=== PATIENT | male | born 1960 | race Two or more races ===

== ENCOUNTER → 2016-08-09 | Outpatient (CLI) | payer BC ==
--- NOTE | 2016-08-09 23:07 | MR ---
EXAMINATION TYPE: MR shoulder RT wo con DATE OF EXAM: 08/09/2016 8:54 PM COMPARISON: NONE HISTORY: Rt shoulder pain/limited ROM for several years TECHNIQUE: Multiplanar, multisequence imaging of the shoulder is performed without contrast. FINDINGS: There is a large defect in the supraspinatus tendon with retraction from the greater tuberosity of th e humerus. There is fluid signal at the greater tuberosity. I see no fracture. There is some narrowin g of the glenohumeral joint space with mild spurring. The biceps tendon is intact. Subscapularis tend on is intact. The glenoid mark appear intact. There is mild spurring at the AC joint with subacromia l impingement on the supraspinatus tendon and muscle. IMPRESSION: Large rotator cuff tear involving supraspinatus tendon at the greater tuberosity of the humerus. Hypertrophic spurring at the AC joint with moderate subacromial impingement on the supraspinatus tend on and muscle. Mild osteoarthritic changes. Minimal shoulder joint effusion.
== END | disposition home or self-care (01) ==
LOC: RADMRIMAIN 20:09
PROVIDERS: ATTEND Orthopaedic Surgery
DX: M75.101 Unspecified rotator cuff tear or rupture of right shoulder, not specified as traumatic (principal); M19.011 Primary osteoarthritis, right shoulder; M75.91 Shoulder lesion, unspecified, right shoulder

== ENCOUNTER → 2017-02-07 | Outpatient (CLI) | payer BC ==
--- NOTE | 2017-02-07 13:26 | CT ---
EXAMINATION TYPE: CT sinus wo con DATE OF EXAM: 02/07/2017 COMPARISON: NONE HISTORY: sinusitis, sleep apnea, chronic snoring CT DLP: 611 mGycm. Automated Exposure Control for Dose Reduction was Utilized. TECHNIQUE: CT scan of the sinuses is performed without contrast, axial images are obtained, coronal r eformatted images are also reviewed. FINDINGS: There is a nasal septal deviation. Small polyps or mucous retention cyst seen within the ma xillary antra with mild mucosal thickening. Mild to moderate mucosal thickening involving ethmoid air cells. Small osteoma within the right frontal sinus inferiorly. Frontal sinus has a minimal mucosal thickening. Syed bullosa are noted bilaterally. There is narrowing of the left ostiomeatal complex. Right ostom y oh complex appears patent. No air-fluid levels. Mild mucosal thickening or mucous retention cyst within the sphenoid sinus. Nasopharynx is symmetric. Oropharynx symmetric. Visualized parotid glands have a normal appearance. Very mild changes of chronic mastoiditis bilaterally. The globes are intact bilaterally. IMPRESSION: 1. Changes of mild to moderate chronic sinusitis with most marked findings involving the ethmoid air cells. 2. Bilateral syed bullosa 3. Localized mucosal thickening results in narrowing of the ostiomeatal complex bilaterally. No air-f luid levels to suggest acute sinusitis. 4. Mild chronic mastoiditis.
== END | disposition home or self-care (01) ==
LOC: RADCTMAIN 13:02
PROVIDERS: ATTEND Otolaryngology
DX: J32.2 Chronic ethmoidal sinusitis (principal); J34.89 Other specified disorders of nose and nasal sinuses; H70.10 Chronic mastoiditis, unspecified ear
CPT/HCPCS: 70486

== ENCOUNTER → 2017-04-24 | Outpatient (CLI) | payer BC ==
--- NOTE | 2017-04-24 12:34 | CONS ---
CONSULTATION DATE OF SERVICE: 04/24/2017 A 57-year-old gentleman who has been [facility] for obstructive sleep apnea-hypopnea syndrome. HISTORY OF PRESENT ILLNESS/SLEEP-WAKE EVALUATION: Patient's usual sleep schedule from 10 pm to 7 am basically 7 days a week. No problem with falling asleep. No TV in bedroom. He has loud snoring and witnessed episodes of stopped breathing during the sleep according to his . He wakes up from sleep up to 10 times and once has nocturia. He feels sleepiness during the day. [place] Sleepiness Scale significantly increased to 15. He has problems with memory, concentration. Patient takes two naps a day at 12 noon and 5 pm. No history of hypnagogic hallucinations. No dreams during naps. No history of sleep paralysis or cataplexy. MEDICATIONS: None. PAST SURGICAL HISTORY: Surgery on the nose and surgery for ruptured naval. PAST SOCIAL HISTORY: Positive for smoking about 1 pack a day for 20 years, quit about 3-1/2 years ago. Alcohol consumption, occasional. REVIEW OF SYSTEMS: Multiple awakenings from sleep, sleepiness during the day. FAMILY HISTORY: Positive for tuberculosis. PHYSICAL EXAM: A 57-year-old gentleman without distress. BP 134/84, HR 84, RR 16, height 5, 10-1/2 inches, weight 220, BMI 31.1. Neck 16-1/2 inches in circumference. Temperature 97.7, oxygen saturation at room air 95%. OROPHARYNX: Extremely low position of soft palate. Restriction of nasal breathing significantly on both sides. One site does not breath at all. Retrognathia at about 10 mm. ABDOMEN: Slightly obese. Neck Supple, no JVD. Thyroid is not palpable. LUNGS Clear to percussion and to auscultation. Good air exchange. No wheezing or rhonchi. HEART S1, S2 regular. No murmurs, gallops, or rubs. EXTREMITIES No clubbing or cyanosis. FIELD ARTILLERY CANNONEER Awake, alert, and oriented X3. Cranial nerves 2 to 7 intact. There is no fasciculation or atrophy. noted. No focal deficits observed. IMPRESSION: 1. Loud snoring, witnessed episodes of stopped breathing during the sleep, extremely low position of soft palate. Restriction of nasal breathing. Retrognathia at10 mm, sleepiness, obstructive sleep apnea-hypopnea syndrome. 2. Mild obesity, body mass index 31.1. 3. Significant sleepiness. Patient takes naps 2 times a day. [place] Sleepiness Scale increased to 15. Differential diagnosis should include hypersomnia. No history of cataplexy or hypnagogic hallucinations. 4. Significant restriction of nasal breathing. 5. Status post nasal surgery many years ago. 6. Status post surgery for umbilical hernia. 7. History of smoking for 20-pack/years. Quit 3 years ago. PLAN: 1. Home sleep apnea test for evaluation of patient's breathing during the sleep. 2. CPAP titration if sleep study will be positive for abnormalities of respiration. 3. Sleep hygiene with regular time in bed for at least 8 hours. 4. No driving if feeling any sleepiness. Thank you very much for allowing me to participate in the management of your patient. Sincerely, Tad Ugarte MD, PhD, FAASM Diplomat of [place] [employer] [place] [employer] Moisture Meter Reader of [facility] Garita MMODL / IJN: [id number] /
== END ==
LOC: SLEEP 10:31
PROVIDERS: ATTEND Internal Medicine
DX: G47.33 Obstructive sleep apnea (adult) (pediatric) (principal); E66.9 Obesity, unspecified; Z68.31 Body mass index [BMI] 31.0-31.9, adult; Z98.890 Other specified postprocedural states; Z87.891 Personal history of nicotine dependence
CPT/HCPCS: 99211

== ENCOUNTER 2017-08-14 11:57 | Inpatient (IN) | payer BC ==
[2017-07-15 12:40] VITALS: BMI 30.9
[~2017-08-14 11:57] MED LIST: DEXAMETHASONE SOD PHOSPHATE 4 MG/ML 1 ML VIAL IV ONE; FAMOTIDINE 20 MG/2 ML VIAL IV ONE; LACTATED RINGERS 1,000 ML IV SCH; LIDOCAINE 1% 20 ML VIAL (10MG/ML) FOR IV START INTRADERMA PRN; MIDAZOLAM 2 MG/2 ML VIAL IV PRN; ONDANSETRON 4 MG/2 ML VIAL IVP ONE; ceFAZolin 1,000 MG in DEXTROSE/WATER 1 50ML.BAG IV ONE
[2017-08-14] MEDS: OXYMETAZOLINE 0.05% NASL SPRAY 1 SPRAY BOTTLE NASAL ONE ×5 (12:15→13:13)
[2017-08-14] MEDS: DEXAMETHASONE SOD PHOSPHATE 10 MG/ML 1 ML VIAL IV ONE ×2 (12:48→18:57)
[2017-08-14] MEDS ORDERED: SUCCINYLCHOLINE CHLORIDE VIAL 200 MG/10 ML VIAL IV ONE (14:10)
[2017-08-14] MEDS ORDERED: LIDOCAINE 1% INJ 10MG/ML (20 ML MDV) ONE (14:10)
[2017-08-14] MEDS ORDERED: ePHEDrine SULFATE/0.9% NACL/PF 50 MG/5 ML SYRINGE IV ONE (14:10)
[2017-08-14] MEDS ORDERED: PROPOFOL 10 MG/ML 20 ML VIAL IV ONE (14:10)
[2017-08-14] MEDS ORDERED: fentaNYL (PF) 50 MCG/ML 2 ML AMP ONE (14:10)
[2017-08-14] MEDS ORDERED: ATROPINE SULFATE 0.1 MG/ML 10ML SYRINGE ONE (14:10)
[2017-08-14] MEDS ORDERED: MIDAZOLAM 2 MG/2 ML VIAL ONE (14:10)
[2017-08-14] MEDS ORDERED: PHENYLEPHRINE-0.9% NACL SYG 1 MG/10 ML SYRINGE ONE (14:10)
[2017-08-14] MEDS ORDERED: SODIUM CHLORIDE 0.9% 50 ML with ceFAZolin 2,000 MG IV ONE ×2 (14:25)
[2017-08-14] MEDS ORDERED: LACTATED RINGERS 1,000 ML IV ONE (14:54)
[2017-08-14] MEDS ORDERED: BUPIVACAIN-EPI 0.5%-1:200,000 30 ML VIAL SQ ONE ×2 (14:56)
[2017-08-14] MEDS ORDERED: BACITRACIN 500 UNIT/GM OINT 28.4 GM TUBE TOPICAL ONE (14:56)
[2017-08-14] MEDS ORDERED: EPINEPHrine 1 MG/ML (MDV) 30 ML VIAL TOPICAL ONE (14:57)
[2017-08-14] MEDS ORDERED: FLUORESCEIN STRIPS 1 MG STRIP MISCELLANE ONE (14:57)
[2017-08-14] MEDS: HYDROmorphone 0.5 MG/0.5 ML SYRINGE IVP PRN ×4 (17:08→17:45)
--- NOTE | 2017-08-14 17:33 | XR ---
EXAMINATION TYPE: XR chest 1V portable DATE OF EXAM: 08/14/2017 COMPARISON: NONE HISTORY: Tube placement TECHNIQUE: Single frontal view of the chest is obtained. FINDINGS: There is mild pulmonary interstitial edema. Endotracheal tube has tip in fairly good posit ion 3.5 cm from the ayaz. Trachea is midline. I see no definite pleural effusion. IMPRESSION: Mild pulmonary interstitial edema.
--- NOTE | 2017-08-14 17:52 | P.OP ---
Date of Procedure: 08/14/17 Preoperative Diagnosis: Sinonasal polyposis Deviated nasal septum Hypertrophy of bilateral nasal turbinates Chronic sinusitis Bilateral middle turbinate syed bullosa with obstruction Severe obstructive sleep apnea syndrome Postoperative Diagnosis: Same Procedure(s) Performed: Septoplasty Bilateral submucosal resection of the inferior turbinates with outfracturing compression Bilateral functional endoscopic sinus surgery with polypectomy, sinonasal polypectomy and nasal polypectomy Uvulopalatopharyngoplasty Hyoid suspension Anesthesia: SOFYA Surgeon: Aldo Castro Estimated Blood Loss (ml): 35 Pathology: other (Sinonasal and soft palate) Condition: stable Disposition: PACU Indications for Procedure: This patient presented to the office after his sleep study demonstrating a respiratory disturbance index of over 45. He was classified as having severe obstructive sleep apnea syndrome. His complaints are one of constant fatigue severe snoring and obstruction as witnessed by the . He has severe nasal obstruction and is a chronic mouth breather. He was intolerant to CPAP machine. Examination reveals obstruction of the nasal airway with nasal polyps large middle turbinate syed bullosa and a severe deviated nasal septum with chronic sinusitis. Patient also had a redundant soft palate and a significant retrodisplacement of the base of the tongue with retrognathia. After long discussion we decided to proceed forward with surgery to open his nasal airway remove his polyps along with sleep apnea surgery which would include a uvulopalatopharyngoplasty and hyoid suspension. All risks, benefits, and alternative therapies were discussed. Consent was obtained and all questions were answered. Operative Findings: Patient is a severe deviated nasal septum to the left side with what appeared to be a previous nasal fracture. Bilateral nasal polyps were noted patient also had large turbinate syed bullosa's that were obstructive with aldo pus coming from the ostiomeatal complexes bilaterally and polypoid disease of the maxillary and ethmoid sinuses. Large obstructive inferior turbinates were noted. The patient also had a redundant and elongated soft palate and uvula and retrognathia. Description of Procedure: This patient was taken to the operative room and placed in the supine position. A general inhalation anesthetic was administered to the patient by the department of anesthesia with a functioning IV line in place. The patient was monitored throughout the entire case by the department of anesthesia. The eyes were taped shut for protection. The patient was placed in a slight reverse Trendelenburg position. The patient had previously utilize Afrin nasal spray preoperatively. The nose was evaluated and the septum lateral nasal wall and inferior turbinates were injected with lidocaine 1% with epinephrine 1 100,000 bilaterally. Approximately 10 minutes were allowed wait for full vasoconstrictive effects to take place. At this point a caudal incision was made over the caudal portion of the left septum down to the mucoperichondrium. A mucoperichondrial flap was elevated on the left side and dissection was carried with use of tunnels posteriorly. We then made a crossover incision through the cartilage to the contralateral side and for the mucoperichondrial flap development was performed to the extent of visualization on the contralateral side. After the cartilage was freed with use of several crosshatching incisions and removal of some redundant strips of septal cartilage, the septum was straightened and placed back in the midline. The septum was sutured fixated to the ovarian groove. Excellent straightening occurred and the septum was visibly straight. Incision was closed with a 40 rapid Vicryl. We utilized a running nonlocking fashion for closure of the incision. A quilting stitch was used to reapproximate the septal flaps with use of a 40 rapid Vicryl. We then entered the nose with a 0 and 30 Fitzgerald wilton endoscope. Previous to this we did inject the lateral nasal wall and middle turbinate and uncinate process with lidocaine 1% with epinephrine 1 100,000. Approximately 10 minutes were allowed wait for full vasoconstrictive effects to take place. Patient had bilateral middle turbinate syed bullosa. The outer portion was resected with the microdebrider and polypoid and purulent material was removed from the bilateral very large middle turbinate syed bullosa. Intranasal polyps were noted. They were noted bilaterally. The intranasal polyps were removed with use of a microdebrider. With use of a microdebrider and a pediatric backbiter, we took down the uncinate process bilaterally. We then opened the maxillary sinuses bilaterally. We utilized a microdebrider for this and entered the maxillary sinuses and removed diseased tissue and polypoid tissue. This was done bilaterally. After the maxillary sinuses were opened and the diseased tissue and polyps were removed we entered the ethmoid bulla and with use of a microdebrider and up-biting Juanita, we remove the anterior septations and remove diseased tissue from the anterior ethmoids with direct visualization. We then followed the fovea frontalis through the basal lamella and into the posterior ethmoid air cells and did a total ethmoidectomy with removal of polypoid material. To summarize, the septum was straightened, intranasal polyps were removed, polyps were removed from the maxillary and ethmoid sinuses, very large obstructive middle turbinate syed bullosa's were resected and corrected with a microdebrider. Polyps were removed from the nose. Ethmoid sinuses were opened totally. Nasal pore was inserted and minimal bleeding was encountered. We reinspected the skull base there is no signs of any orbital penetration or signs of any intracranial penetration. The sugical site was reinspected after the nasal pore was placed and no bleeding was seen. Attention was then paid to the inferior turbinates. The bilateral inferior turbinates were hypertrophic and obstructive. We entered the anterior portion of the inferior turbinates with use of a microdebrider. We remove bone and submucosal elements with use of a microdebrider bilaterally. The inferior turbinates underwent a submucosal resection with removal of submucosal tissue and bone. We obtained a much better and normal in size for breathing. The inferior turbinates were then outfractured and compressed with a [place] nasal elevator. Excellent airway was obtained and was symmetric bilaterally. No bleeding was encountered. Intranasal splints were inserted and fixated at the end of the case. We utilized Mckeon nasal splints. There will be removed and the patient returns to the office. Attention was then paid to the mouth where a McIvor mouthgag was inserted into the patient's mouth with care to avoid any trauma to the lips, teeth, gums, or tongue. The mouth was opened and tongue was depressed and the soft palate was measured. The uvula was extremely long and the soft palate was redundant. We removed the anterior face of the uvula and we remove the anterior inferior margin of the mucosa the soft palate. We sutured the posterior margin of the soft palate to the anterior portion of the soft palate with care to avoid any excessive soft palate resection. We measured the soft palate to prevent any velopharyngeal insufficiency. The soft palate looked excellent and after the uvulectomy and the lateral pharyngeal mucosa was removed in the usual fashion, the incision was closed with a 4 rapid Vicryl. Excellent approximation was obtained. The neck was sterilely prepped and draped in usual fashion. A horizontal curvilinear incision was made over the larynx. Dissection was carried out superiorly and inferiorly and a skin flap was developed. The strap muscles were in the midline and the thyroid cartilage was identified. We then skeletonized the upper portion of the thyroid cartilage and then identified the hyoid bone and freed the hyoid bone from its attachments anteriorly. We utilized 2-0 Prolene and reapproximated the hyoid bone to the superior portion of the thyroid cartilage. The hyoid was closely approximated to the superior portion of the thyroid cartilage. The strap muscles were reapproximated with a 4-0 Vicryl and a 4-0 Monocryl. The deep subcutaneous and platysmal layers were closed with 4-0 Monocryl the deep dermal layer was closed with 4-0 Monocryl and the skin was closed with a 50 rapid Vicryl in a running nonlocking fashion. Excellent approximation was obtained. The patient tolerated this well.
[2017-08-14] MEDS: MIDAZOLAM 2 MG/2 ML VIAL IVP ONE ×2 (18:00→18:08)
[2017-08-14] MEDS ORDERED: MIDAZOLAM 2 MG/2 ML VIAL IVP ONE (18:00)
--- NOTE | 2017-08-14 18:00 | P.PN ---
Subjective Progress Note Date: 08/14/17 Principal diagnosis: Shortness of breath This patient underwent surgery and did well surgically. Unfortunately during awakening from surgery he took a big deep breath against a closed airway i.e. a closed glottis and induced what appears to be a negative pressure pulmonary edema. Again, he had a deep inspiration against a closed glottis or airway and he has now developed some pulmonary edema. I've discussed this with Dr. Menezes and his family physician Dr. Sung and the anesthesiologist and we felt he should be admitted on a ventilator with positive pressure ventilation. I've discussed this with the . The patient is stable and overall is doing well. The surgical areas are doing well. There is no bleeding is not hypertensive etc. Objective - Vital Signs Vital signs: Vital Signs Temp 97 F L 08/14/17 16:34 Pulse 107 H 08/14/17 17:50 Resp 16 08/14/17 17:50 BP 159/63 08/14/17 17:50 Pulse Ox 97 08/14/17 17:50 Intake & Output 08/13/17 08/14/17 08/14/17 18:59 06:59 18:59 Intake Total 1800 Output Total 25 Balance 1775 Intake: IV 1800 Output: Estimated Blood Loss 25 - Constitutional General appearance: Present: average body habitus - EENT EENT Comment(s): Patient has intranasal splints, UP3 surgery was done and has an incision on his neck from his hyoid suspension surgery. Eyes: Present: PERRLA. Absent: ptosis - Neck Details: Incision for his hyoid suspension surgery Neck: Absent: lymphadenopathy - Respiratory Respiratory: bilateral: diminished - Cardiovascular Rhythm: regular - Integumentary Integumentary: Absent: calor - Neurologic Neurologic: Present: CNII-XII intact. Absent: focal deficits - Musculoskeletal Musculoskeletal: Present: strength equal bilaterally. Absent: right sided weakness, left sided weakness Assessment and Plan (1) Pulmonary edema Current Visit: Yes Status: Acute Code(s): J81.1 - CHRONIC PULMONARY EDEMA SNOMED Code(s): 95612371 (2) Obstructive sleep apnea syndrome, severe Current Visit: Yes Status: Acute Code(s): G47.33 - OBSTRUCTIVE SLEEP APNEA ( ADULT) (PEDIATRIC) SNOMED Code(s): 64467169 Plan: This patient's stable and his surgical sites are doing well. The patient has a negative pressure pulmonary edema from a deep inspiration against a closed airway during the emergence from his surgery. We are recommending positive pressure treatment with a ventilator. Dr. Sung and Dr. Menezes will be on the case. Patient will be followed closely.
[2017-08-14] MEDS ORDERED: ENALAPRILAT 1.25 MG/ML 1 ML VIAL IVP ONE (18:03)
[2017-08-14] MEDS ORDERED: METOPROLOL TARTRATE 5 MG/5 ML VIAL IVP ONE (18:04)
[2017-08-14] MEDS ORDERED: NALOXONE 0.4 MG/ML 1 ML VIAL IV PRN (18:47)
[2017-08-14 18:50] LABS: Glucose,Whole Blood 166 mg/dL (75-99)
[2017-08-14] MEDS ORDERED: LEVOFLOXACIN 500MG-D5W PMX 500 MG in DEXTROSE/WATER 1 100ML.BAG IVPB SCH (19:00)
[2017-08-14] MEDS ORDERED: SODIUM CHLORIDE 0.9% 1,000 ML IV SCH (19:00)
[2017-08-14] MEDS ORDERED: PROPOFOL 100 ML IV ONE (19:31)
[2017-08-14] MEDS: IPRATROPIUM-ALBUTEROL 3 ML NEB INHALATION SCH (19:36)
[2017-08-14] MEDS: HYDROmorphone 2 MG/ML 1 ML SYRINGE IVP PRN ×2 (19:53→22:06)
[2017-08-14] MEDS: CHLORHEXIDINE GLUCONATE 15 ML CUP MUCOUS MEM SCH (21:09)
[2017-08-14] MEDS: methylPREDNISolone SOD SUCCI 125 MG/2 ML VIAL IV SCH (21:10)
[2017-08-14] MEDS ORDERED: PROPOFOL 1,000 MG in EMPTY BAG 1 BAG IV SCH (22:00)
[2017-08-14] MEDS: SODIUM CHLORIDE 0.9% 1,000 ML IV SCH (23:03)
[2017-08-14] MEDS: HEPARIN SODIUM,PORCINE 5,000 UNIT/ML 1 ML VIAL SQ SCH (23:06)
[2017-08-15] MEDS: HYDROmorphone 2 MG/ML 1 ML SYRINGE IVP PRN ×2 (01:08→07:44)
[2017-08-15 05:12] LABS: ABG Base Excess -2.3 mmol/L; ABG HCO3 22 mmol/L (21-25); ABG PCO2 41 mmHg (35-45); ABG PH 7.35 (7.35-7.45); ABG PO2 121 mmHg (83-108); ABG TCO2 24 mmol/L (19-24)
[2017-08-15 05:32] LABS: Basophils % (A) 0 %; Eosinophils % (A) 0 %; HCT 42.2 % (39.0-53.0); HGB 13.8 gm/dL (13.0-17.5); Lymphocytes % (A) 7 %; MCH 31.3 pg (25.0-35.0); MCHC 32.7 g/dL (31.0-37.0); MCV 95.7 fL (80.0-100.0); Mean Platelet Volume 9.1; Monocytes # (A) 0.5 k/uL (0-1.0); Monocytes % (A) 4 %; Neutrophils # (A) 12.3 k/uL (1.3-7.7); Neutrophils % (A) 88 %; Platelet Count 177 k/uL (150-450); RBC 4.41 m/uL (4.30-5.90); WBC 13.9 k/uL (3.8-10.6)
[2017-08-15 05:42] LABS: Anion Gap 14 mmol/L; Blood Urea Nitrogen 36 mg/dL (9-20); Calcium 8.9 mg/dL (8.4-10.2); Carbon Dioxide 22 mmol/L (22-30); Chloride 106 mmol/L (98-107); Glucose 186 mg/dL (74-99); Magnesium 1.6 mg/dL (1.6-2.3); Phosphorus 4.5 mg/dL (2.5-4.5); Potassium 5.3 mmol/L (3.5-5.1); Sodium 142 mmol/L (137-145)
[2017-08-15] MEDS ORDERED: Magnesium Replacement Protocol 1 EACH MISC MISCELLANE PRN (06:25)
[2017-08-15] MEDS: MAGNESIUM SULFATE-D5W PMX 1 GM in DEXTROSE/WATER 1 100ML.BAG IVPB SCH ×2 (07:00→07:43)
[2017-08-15] MEDS: CHLORHEXIDINE GLUCONATE 15 ML CUP MUCOUS MEM SCH (07:43)
[2017-08-15] MEDS: HEPARIN SODIUM,PORCINE 5,000 UNIT/ML 1 ML VIAL SQ SCH (07:43)
[2017-08-15] MEDS: methylPREDNISolone SOD SUCCI 125 MG/2 ML VIAL IV SCH (07:44)
--- NOTE | 2017-08-15 07:52 | XR ---
EXAMINATION TYPE: XR chest 1V DATE OF EXAM: 08/15/2017 COMPARISON: Prior chest x-ray 08/14/2017 HISTORY: Intubated TECHNIQUE: Single frontal view of the chest is obtained. FINDINGS: Endotracheal tube is superimposed over the tracheal air column. Heart size is stable. Lung volumes are low. There may be some improvement in the interstitium. No evident pneumothorax. Difficu lt to exclude retrocardiac density, patient is rotated, there may be scoliosis. There are overlying c ardiac leads. Perihilar vascular indistinctness noted. IMPRESSION: There may be some improvement in patient's volume status, additional follow-up recommend ed.
[2017-08-15 08:06] VITALS: TEMP 98
[2017-08-15] MEDS: IPRATROPIUM-ALBUTEROL 3 ML NEB INHALATION SCH ×2 (08:20→09:03)
[2017-08-15] MEDS ORDERED: FUROSEMIDE 10 MG/ML 2 ML VIAL IV ONE (08:41)
[2017-08-15] MEDS ORDERED: PANTOPRAZOLE 40 MG/10 ML VIAL IV SCH (09:00)
--- NOTE | 2017-08-15 10:12 | P.CNPUL ---
History of Present Illness Consult date: 08/15/17 Requesting physician: Johnson Castro Reason for consult: other Chief complaint: Sleep apnea History of present illness: This is a very pleasant 57-year-old gentleman who follows with Dr. Sung as his primary care physician. He of severe obstructive sleep apnea syndrome. 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 Here yesterday to undergo surgery with Dr. Muñoz. He had performed a septoplasty, bilateral submucosal resection of the inferior turbinates with outfracture and compression, bilateral functional endoscopic sinus surgery with polypectomy, sinonasal nasal polypectomy and nasal polypectomy, uvulopalato pharyngoplasty, hyoid suspension. He did well during the surgery however during extubation the patient inspiration against a closed glottis and developed pulmonary edema. He was subsequently reintubated and transferred to the intensive care unit. He is seen today in consultation. This is postoperative day #1. Current vent settings are assist control of 16, tidal volume 450, FiO2 50% and a PEEP of 5. Morning blood gases are PaO2 121, pCO2 41 , pH 7.35. His chest x-ray shows improvement in the interstitial edema. given additional Lasix 20 mg IV push times one this morning. He'll be given a sedation holiday and a CPAP trial with weaning parameters. Review of Systems ROS unobtainable: due to endotracheal tube Past Medical History Past Medical History: Sleep Apnea/CPAP/BIPAP Additional Past Medical History / Comment(s): SINUS PROBLEMS. 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 NASAL POLYPS REMOVED Past Anesthesia/Blood Transfusion Reactions: No Reported Reaction Past Psychological History: No Psychological Hx Reported Smoking Status: Former smoker Past Alcohol Use History: Occasional Additional Past Alcohol Use History / Comment(s): QUIT SMOKING IN 2013 Past Drug Use History: None Reported - Past Family History Mother Family Medical History: Cancer Additional Family Medical History / Comment(s): LUNG Medications and Allergies Home Medications Medication Instructions Recorded Confirmed Type No Known Home Medications [No 07/15/17 08/14/17 History Known Home Medications] Allergies Allergy/AdvReac Type Severity Reaction Status Date / Time No Known Allergies Allergy Verified 08/14/17 18:38 Physical Exam Vitals: Vital Signs Temp Pulse Pulse Pulse Resp BP BP 08/15/17 08:00 98.0 F 98 58 H 87/58 08/15/17 07:30 82 12 107/72 08/15/17 07:00 95 5 L 119/82 08/15/17 06:30 112 H 16 141/90 08/15/17 06:00 90 16 126/80 08/15/17 05:30 102 H 16 120/79 08/15/17 05:00 89 17 115/79 08/15/17 04:30 82 16 112/72 08/15/17 04:00 98.5 F 87 16 109/78 08/15/17 03:30 72 16 108/64 08/15/17 03:04 96 16 08/15/17 03:00 78 16 107/59 08/15/17 02:30 83 19 101/70 08/15/17 02:00 75 16 107/64 08/15/17 01:30 81 16 97/69 08/15/17 01:00 73 19 102/65 08/15/17 00:30 83 17 84/63 08/15/17 00:00 97.8 F 78 17 73/60 08/14/17 23:41 76 96 16 93/68 08/14/17 23:30 76 17 93/68 08/14/17 23:00 80 16 93/68 08/14/17 22:30 80 16 08/14/17 22:00 80 16 95/68 08/14/17 21:30 94 22 101/72 08/14/17 21:00 87 16 85/65 08/14/17 20:30 84 16 86/68 08/14/17 20:20 84 16 96/74 08/14/17 20:12 81 08/14/17 20:10 77 16 96/74 08/14/17 20:00 97.2 F L 80 96 16 96/74 08/14/17 19:50 80 16 105/72 08/14/17 19:46 76 08/14/17 19:40 88 16 96/70 08/14/17 19:30 89 14 96/70 08/14/17 19:20 82 10 L 94/84 08/14/17 19:10 88 12 94/84 08/14/17 19:00 98.1 F 93 8 L 94/84 08/14/17 18:50 94 13 144/57 18 18:40 114 H 19 96/55 08/14/17 18:30 91 11 L 96/55 08/14/17 18:22 93 08/14/17 18:05 96 16 157/70 08/14/17 17:50 107 H 16 159/63 08/14/17 17:35 114 H 18 161/89 08/14/17 17:20 108 H 18 145/80 08/14/17 17:05 110 H 20 181/85 08/14/17 16:50 116 H 16 157/71 08/14/17 16:34 97 F L 118 H 16 149/83 08/14/17 12:19 97.8 F 100 18 152/93 Pulse Ox 08/15/17 08:00 97 08/15/17 07:30 97 08/15/17 07:00 95 08/15/17 06:30 98 08/15/17 06:00 97 08/15/17 05:30 95 08/15/17 05:00 98 08/15/17 04:30 98 08/15/17 04:00 97 08/15/17 03:30 97 08/15/17 03:04 08/15/17 03:00 96 08/15/17 02:30 97 08/15/17 02:00 97 08/15/17 01:30 96 08/15/17 01:00 98 08/15/17 00:30 97 08/15/17 00:00 98 08/14/17 23:41 98 08/14/17 23:30 97 08/14/17 23:00 98 08/14/17 22:30 98 08/14/17 22:00 98 08/14/17 21:30 99 08/14/17 21:00 98 08/14/17 20:30 95 08/14/17 20:20 97 08/14/17 20:12 08/14/17 20:10 95 08/14/17 20:00 96 08/14/17 19:50 97 08/14/17 19:46 08/14/17 19:40 95 08/14/17 19:30 97 08/14/17 19:20 96 08/14/17 19:10 95 08/14/17 19:00 96 08/14/17 18:50 96 08/14/17 18:40 97 08/14/17 18:30 99 08/14/17 18:22 08/14/17 18:05 97 08/14/17 17:50 97 08/14/17 17:35 97 08/14/17 17:20 98 08/14/17 17:05 99 08/14/17 16:50 97 08/14/17 16:34 100 08/14/17 12:19 97 Intake and Output 08/14/17 08/15/17 08/15/17 22:59 06:59 14:59 Intake Total 530 1178.973 122.733 Output Total 210 365 155 Balance 320 813.973 -32.267 Intake: IV 430 1125 Levofloxacin 500Mg-D5w 100 Pmx 500 mg In Dextrose/ Water 1 100ml.bag @ 100 mls/hr IVPB Q24H [facility] Rx#: [id number] Sodium Chloride 0.9% 1, 1125 000 ml @ 125 mls/hr IV . Q8H [facility] Rx#:[id number] Sodium Chloride 0.9% 1, 60 000 ml @ 20 mls/hr IV . Q24H [facility] Rx#:[id number] Intake, IV Titration 100 53.973 122.733 Amount Levofloxacin 500Mg-D5w 100 Pmx 500 mg In Dextrose/ Water 1 100ml.bag @ 100 mls/hr IVPB Q24H [facility] Rx#: [id number] Magnesium Sulfate-D5w Pmx 100 1 gm In Dextrose/Water 1 100ml.bag @ 100 mls/hr IVPB Q1H [facility] Rx#: [id number] Propofol 1,000 mg In 53.973 22.733 Empty Bag 1 bag @ Titrate IV .Q0M [facility] Rx#: [id number] Output: Urine 185 365 155 Estimated Blood Loss 25 Other: Voiding Method Indwelling Catheter Indwelling Catheter Indwelling Catheter Weight 105.2 kg 105.2 kg Patient Weight 08/16/17 06:59 Weight 105.2 kg GENERAL EXAM: Intubated, sedated, comfortable in no apparent distress. HEAD: Normocephalic. EYES: Normal reaction of pupils, equal size. NOSE: Clear with pink turbinates. THROAT: There is some retained secretions, bloody NECK: Dressing dry and intact. No masses, no JVD. CHEST: No chest wall deformity. LUNGS: Equal air entry with crackles in the posterior bases. CVS: S1 and S2 normal with no audible murmur, regular rhythm. ABDOMEN: No hepatosplenomegaly, normal bowel sounds, no guarding or rigidity. SPINE: No scoliosis or deformity SKIN: No rashes CENTRAL NERVOUS SYSTEM: No focal deficits, tone is normal in all 4 extremities. EXTREMITIES: There is no peripheral edema. No clubbing, no cyanosis. Peripheral pulses are intact. Results - Laboratory Findings CBC and BMP: 08/15/17 05:14 08/15/17 05:14 ABG ABG pH 7.35 (7.35-7.45) 08/15/17 05:01 ABG pCO2 41 mmHg (35-45) 08/15/17 05:01 ABG pO2 121 mmHg (83-108) H 08/15/17 05:01 ABG O2 Saturation 99.0 % (94-97) H 08/15/17 05:01 Abnormal lab findings: Abnormal Labs 08/14/17 08/15/17 08/15/17 18:30 05:01 05:14 WBC 13.9 H Neutrophils # 12.3 H ABG pO2 121 H ABG O2 Saturation 99.0 H Potassium BUN Creatinine Glucose POC Glucose (mg/dL) 166 H 08/15/17 05:14 WBC Neutrophils # ABG pO2 ABG O2 Saturation Potassium 5.3 H BUN 36 H Creatinine 1.27 H Glucose 186 H POC Glucose (mg/dL) - Diagnostic Findings Chest x-ray: image reviewed Assessment and Plan Assessment: Impression: #1 Acute hypoxic respiratory failure secondary to flash pulmonary edema secondary to deep inhalation against closed glottis following extubation. Sedated and on mechanical ventilator. 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 Status post septoplasty, bilateral submucosal resection of the inferior turbinates without fracture and compression, bilateral functional endoscopic sinus surgery with polypectomy, sinonasal polypectomy and nasal polypectomy, U Velo Lehto pharyngoplasty, hyoid suspension. Postoperative day #1. #3 Severe obstructive sleep apnea. #4 20 year pack per day smoking history however quit approximately 3-1/2 years ago. Plan: The patient was seen and evaluated by Dr. Menezes. His chest x-ray and labs, ABGs were all reviewed. The patient was given a sedation holiday and the CPAP trial. His weaning parameters were intact and the patient was extubated 4 L of nasal cannula. He is presently doing quite well. Maintaining O2 sat saturations in the 90s. He'll remain nothing by mouth for 6 hours. We'll continue to monitor him here in the intensive care unit for several hours. He' s been hemodynamically stable. We will continue to follow and make further recommendations based on his clinical status. I, the cosigning physician, performed a history & physical examination of the patient. Lungs sounds faint crackles in the bilateral posterior bases. Maintaining good O2 saturations in the 90s on 4 L/m per nasal cannula. I discussed the assessment and plan of care with my nurse practitioner, Annette Bowles. I attest to the above note as dictated by her. Time with Patient: Greater than 30
--- NOTE | 2017-08-15 10:24 | P.CONS ---
History of Present Illness - Reason for Consult Consult date: 08/15/17 Medical management - Chief Complaint KB, s/p resection of turbinates, polypectomy, uvulopalatopharyngoplasty - History of Present Illness 57-year-old male who underwent elective surgery on 08/14/[address] Castro. The patient has a history of severe obstructive sleep apnea and was experiencing constant fatigue and severe snoring. He underwent septoplasty, bilateral submucosal resection of the inferior turbinates with out fracturing compression, bilateral functional endoscopic sinus surgery with polypectomy, sinonasal polypectomy, and nasal polypectomy, uvulopalatopharyngoplasty, and hyoid suspension. Postoperatively, the patient took a deep breath against a closed airway and induced a negative pressure pulmonary edema per Dr. Castro. The patient was placed on a ventilator overnight and admitted to the intensive care unit. Dr. Sung was consulted for medical management. The patient was seen and examined in the intensive care unit on rounds with Dr. Sung. The patient remains on mechanical ventilation. He is currently on assist control mode on the ventilator. Anticipate weaning trial this morning. He is awake and alert. He is able to nod yes or no to answer questions. Pain is tolerable at this time. His vital signs have remained stable. Blood pressure is stable with a reading of 120/81. Review of Systems Unable to obtain at this time secondary to mechanical ventilation Past Medical History Past Medical History: Sleep Apnea/CPAP/BIPAP Additional Past Medical History / Comment(s): SINUS PROBLEMS. 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 NASAL POLYPS REMOVED Past Anesthesia/Blood Transfusion Reactions: No Reported Reaction Past Psychological History: No Psychological Hx Reported Smoking Status: Former smoker Past Alcohol Use History: Occasional Additional Past Alcohol Use History / Comment(s): QUIT SMOKING IN 2013 Past Drug Use History: None Reported - Past Family History Mother Family Medical History: Cancer Additional Family Medical History / Comment(s): LUNG Medications and Allergies Home Medications Medication Instructions Recorded Confirmed Type No Known Home Medications [No 07/15/17 08/14/17 History Known Home Medications] Allergies Allergy/AdvReac Type Severity Reaction Status Date / Time No Known Allergies Allergy Verified 08/14/17 18:38 Physical Exam Vitals: Vital Signs Temp Pulse Pulse Pulse Resp BP BP 08/15/17 08:00 98.0 F 98 58 H 87/58 08/15/17 07:30 82 12 107/72 08/15/17 07:00 95 5 L 119/82 08/15/17 06:30 112 H 16 141/90 08/15/17 06:00 90 16 126/80 08/15/17 05:30 102 H 16 120/79 08/15/17 05:00 89 17 115/79 08/15/17 04:30 82 16 112/72 08/15/17 04:00 98.5 F 87 16 109/78 08/15/17 03:30 72 16 108/64 08/15/17 03:04 96 16 08/15/17 03:00 78 16 107/59 08/15/17 02:30 83 19 101/70 08/15/17 02:00 75 16 107/64 08/15/17 01:30 81 16 97/69 08/15/17 01:00 73 19 102/65 08/15/17 00:30 83 17 84/63 08/15/17 00:00 97.8 F 78 17 73/60 08/14/17 23:41 76 96 16 93/68 08/14/17 23:30 76 17 93/68 08/14/17 23:00 80 16 93/68 08/14/17 22:30 80 16 08/14/17 22:00 80 16 95/68 08/14/17 21:30 94 22 101/72 08/14/17 21:00 87 16 85/65 08/14/17 20:30 84 16 86/68 08/14/17 20:20 84 16 96/74 08/14/17 20:12 81 08/14/17 20:10 77 16 96/74 08/14/17 20:00 97.2 F L 80 96 16 96/74 08/14/17 19:50 80 16 105/72 08/14/17 19:46 76 08/14/17 19:40 88 16 96/70 08/14/17 19:30 89 14 96/70 08/14/17 19:20 82 10 L 94/84 08/14/17 19:10 88 12 94/84 08/14/17 19:00 98.1 F 93 8 L 94/84 08/14/17 18:50 94 13 144/57 08/14/17 18:40 114 H 19 96/55 08/14/17 18:30 91 11 L 96/55 08/14/17 18:22 93 08/14/17 18:05 96 16 157/70 08/14/17 17:50 107 H 16 159/63 08/14/17 17:35 114 H 18 161/89 08/14/17 17:20 108 H 18 145/80 08/14/17 17:05 110 H 20 181/85 08/14/17 16:50 116 H 16 157/71 08/14/17 16:34 97 F L 118 H 16 149/83 18 12:19 97.8 F 100 18 152/93 Pulse Ox 08/15/17 08:00 97 08/15/17 07:30 97 08/15/17 07:00 95 08/15/17 06:30 98 08/15/17 06:00 97 08/15/17 05:30 95 08/15/17 05:00 98 08/15/17 04:30 98 08/15/17 04:00 97 08/15/17 03:30 97 08/15/17 03:04 08/15/17 03:00 96 08/15/17 02:30 97 08/15/17 02:00 97 08/15/17 01:30 96 08/15/17 01:00 98 08/15/17 00:30 97 08/15/17 00:00 98 08/14/17 23:41 98 08/14/17 23:30 97 08/14/17 23:00 98 08/14/17 22:30 98 08/14/17 22:00 98 08/14/17 21:30 99 08/14/17 21:00 98 08/14/17 20:30 95 08/14/17 20:20 97 08/14/17 20:12 08/14/17 20:10 95 08/14/17 20:00 96 08/14/17 19:50 97 08/14/17 19:46 08/14/17 19:40 95 18 19:30 97 08/14/17 19:20 96 08/14/17 19:10 95 08/14/17 19:00 96 08/14/17 18:50 96 08/14/17 18:40 97 08/14/17 18:30 99 08/14/17 18:22 08/14/17 18:05 97 08/14/17 17:50 97 08/14/17 17:35 97 08/14/17 17:20 98 08/14/17 17:05 99 08/14/17 16:50 97 08/14/17 16:34 100 08/14/17 12:19 97 Intake and Output 08/14/17 08/15/17 08/15/17 22:59 06:59 14:59 Intake Total 530 1178.973 122.733 Output Total 210 365 155 Balance 320 813.973 -32.267 Intake: IV 430 1125 Levofloxacin 500Mg-D5w 100 Pmx 500 mg In Dextrose/ Water 1 100ml.bag @ 100 mls/hr IVPB Q24H [facility] Rx#: [id number] Sodium Chloride 0.9% 1, 1125 000 ml @ 125 mls/hr IV . Q8H [facility] Rx#:[id number] Sodium Chloride 0.9% 1, 60 000 ml @ 20 mls/hr IV . Q24H [facility] Rx#:[id number] Intake, IV Titration 100 53.973 122.733 Amount Levofloxacin 500Mg-D5w 100 Pmx 500 mg In Dextrose/ Water 1 100ml.bag @ 100 mls/hr IVPB Q24H [facility] Rx#: [id number] Magnesium Sulfate-D5w Pmx 100 1 gm In Dextrose/Water 1 100ml.bag @ 100 mls/hr IVPB Q1H [facility] Rx#: [id number] Propofol 1,000 mg In 53.973 22.733 Empty Bag 1 bag @ Titrate IV .Q0M [facility] Rx#: [id number] Output: Urine 185 365 155 Estimated Blood Loss 25 Other: Voiding Method Indwelling Catheter Indwelling Catheter Indwelling Catheter Weight 105.2 kg 105.2 kg Patient Weight 08/16/17 06:59 Weight 105.2 kg GENERAL: This is a 57-year-old male who remains on mechanical ventilation. Awake and alert. Able to nod yes or no to questions. HEENT: Dressing to anterior neck clean dry and intact. No drainage noted. ET tube in place. Head is atraumatic, normocephalic. Pupils are equal, round, and reactive to light. Sclerae anicteric. Conjunctivae are clear. Mucus membranes of the mouth are moist. Neck is supple. RESPIRATORY: Clear to ausculation. No wheezes, rales, or rhonchi. Patient maintaining oxygen saturation greater than 92% on mechanical ventilation. No chest wall tenderness is noted on palpation or with deep breathing. CARDIOVASCULAR: Regular rate and rhythm. S1 and S2 noted. No systolic or diastolic murmur auscultated. No JVD noted. No S3 or S4 noted. GASTROINTESTINAL: No distention noted. Abdomen soft and round. Normal active bowel sounds auscultated x 4 quadrants. No pain or tenderness noted upon palpation. INTEGUMENTARY: No cyanosis. No jaundice. No rashes noted. No cellulitis noted. EXTREMITIES: 2+ peripheral pulses. No evidence of peripheral edema. No calf tenderness noted. NEUROLOGIC: Cranial nerves II-XII intact. PSYCHIATRIC: Awake, alert, and oriented X 3. Appropriate affect. Intact judgement and insight. Results CBC & Chem 7: 08/15/17 05:14 08/15/17 05:14 Labs: Abnormal Lab Results - Last 24 Hours (Table) 08/14/17 08/15/17 08/15/17 Range/Units 18:30 05:01 05:14 WBC 13.9 H (3.8-10.6) k/uL Neutrophils # 12.3 H (1.3-7.7) k/uL ABG pO2 121 H (83-108) mmHg ABG O2 Saturation 99.0 H (94-97) % Potassium (3.5-5.1) mmol/L BUN (9-20) mg/dL Creatinine (0.66-1.25) mg/dL Glucose (74-99) mg/dL POC Glucose (mg/dL) 166 H (75-99) mg/dL 08/15/17 Range/Units 05:14 WBC (3.8-10.6) k/uL Neutrophils # (1.3-7.7) k/uL ABG pO2 (83-108) mmHg ABG O2 Saturation (94-97) % Potassium 5.3 H (3.5-5.1) mmol/L BUN 36 H (9-20) mg/dL Creatinine 1.27 H (0.66-1.25) mg/dL Glucose 186 H (74-99) mg/dL POC Glucose (mg/dL) (75-99) mg/dL Microbiology - Last 24 Hours (Table) 08/14/17 18:30 Gram Stain - Preliminary Sputum Sputum Culture - Preliminary Assessment and Plan Plan: ASSESSMENT: Severe obstructive sleep apnea, sinonasal polyposis, deviated nasal septum, chronic sinusitis, 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, and hypertrophy of bilateral nasal turbinates s/p septoplasty, bilateral submucosal resection of the inferior turbinates with out fracturing compression , bilateral functional endoscopic sinus surgery with polypectomy, sinonasal polypectomy, and nasal polypectomy, uvulopalatopharyngoplasty, and hyoid suspension, POD #1 Postoperative acute hypoxic respiratory failure secondary to pulmonary edema secondary to deep inhalation against closed glottis requiring mechanical ventiliation, an unexpected but potential outcome of surgery History of nicotine dependence, in remission, patient quit smoking in 2013 Obesity: BMI 31.9 PLAN: -Continue postoperative care per Dr. Castro -Anticipate weaning trial this morning -Ventilator managment per pulmonary -Monitor labs -Monitor vital signs and address as appropriate -Further recommendations pending patient's course -If patient is able to be successfully extubated and remains stable throughout the day, he is cleared for discharge home from a medical standpoint per Dr. Sung Nurse practitioner note has been reviewed by physician. Signing provider agrees with the documented findings, assessment, and plan of care.
[2017-08-15 13:24] VITALS: RESP 10
[2017-08-15 13:30] LABS: Hemoglobin A1C 6.1 % (4.0-6.0)
[2017-08-15] MEDS: SODIUM CHLORIDE 0.9% 1,000 ML IV SCH (13:34)
[2017-08-15 16:11] VITALS: BP 135/85; PULSE 119
--- NOTE | 2017-08-15 17:27 | P.PN ---
Subjective Progress Note Date: 08/15/17 Principal diagnosis: Negative pressure pulmonary edema Patient is doing well. He was extubated this morning at 9:00. He is eating well. He does have throat pain but otherwise she is talking well sitting up and has no new issues. He denies any shortness of breath. Objective - Vital Signs Vital signs: Vital Signs Temp 98.0 F 08/15/17 16:00 Pulse 119 H 08/15/17 16:00 Resp 10 L 08/15/17 16:00 BP 135/85 08/15/17 16:00 Pulse Ox 95 08/15/17 16:00 Intake & Output 08/14/17 08/15/17 08/15/17 18:59 06:59 18:59 Intake Total 1820 1438.973 642.733 Output Total 25 550 1705 Balance 1795 888.973 -1062.267 Weight 105.2 kg 105.2 kg Intake: IV 1820 1285 100 Levofloxacin 500Mg-D5w 100 Pmx 500 mg In Dextrose/ Water 1 100ml.bag @ 100 mls/hr IVPB Q24H [facility] Rx#: [id number] Sodium Chloride 0.9% 1, 1125 100 000 ml @ 125 mls/hr IV . Q8H [facility] Rx#:[id number] Sodium Chloride 0.9% 1, 60 000 ml @ 20 mls/hr IV . Q24H [facility] Rx#:[id number] Intake, IV Titration 153.973 182.733 Amount Levofloxacin 500Mg-D5w 100 Pmx 500 mg In Dextrose/ Water 1 100ml.bag @ 100 mls/hr IVPB Q24H [facility] Rx#: [id number] Magnesium Sulfate-D5w Pmx 100 1 gm In Dextrose/Water 1 100ml.bag @ 100 mls/hr IVPB Q1H [facility] Rx#: [id number] Propofol 1,000 mg In 53.973 22.733 Empty Bag 1 bag @ Titrate IV .Q0M [facility] Rx#: [id number] Sodium Chloride 0.9% 1, 60 000 ml @ 125 mls/hr IV . Q8H [facility] Rx#:[id number] Oral 360 Output: Urine 550 1705 Estimated Blood Loss 25 Other: Voiding Method Indwelling Catheter Toilet # Bowel Movements 1 - Constitutional General appearance: Present: average body habitus - EENT EENT Comment(s): Nasal splints in place. UP3 surgery noted Eyes: Present: PERRLA ENT: Present: pharyngeal erythema. Absent: hard of hearing - Neck Details: Incision looks good - Respiratory Respiratory: bilateral: CTA - Labs CBC & Chem 7: 08/15/17 05:14 08/15/17 05:14 Labs: Abnormal Lab Results - Last 24 Hours (Table) 08/14/17 08/15/17 08/15/17 Range/Units 18:30 05:01 05:14 WBC 13.9 H (3.8-10.6) k/uL Neutrophils # 12.3 H (1.3-7.7) k/uL ABG pO2 121 H (83-108) mmHg ABG O2 Saturation 99.0 H (94-97) % Potassium (3.5-5.1) mmol/L BUN (9-20) mg/dL Creatinine (0.66-1.25) mg/dL Glucose (74-99) mg/dL POC Glucose (mg/dL) 166 H (75-99) mg/dL 08/15/17 Range/Units 05:14 WBC (3.8-10.6) k/uL Neutrophils # (1.3-7.7) k/uL ABG pO2 (83-108) mmHg ABG O2 Saturation (94-97) % Potassium 5.3 H (3.5-5.1) mmol/L BUN 36 H (9-20) mg/dL Creatinine 1.27 H (0.66-1.25) mg/dL Glucose 186 H (74-99) mg/dL POC Glucose (mg/dL) (75-99) mg/dL Microbiology - Last 24 Hours (Table) 08/14/17 18:30 Gram Stain - Preliminary Sputum Sputum Culture - Preliminary Assessment and Plan (1) Pulmonary edema Current Visit: Yes Status: Acute Code(s): J81.1 - CHRONIC PULMONARY EDEMA SNOMED Code(s): 32225999 (2) Obstructive sleep apnea syndrome, severe Current Visit: Yes Status: Acute Code(s): G47.33 - OBSTRUCTIVE SLEEP APNEA ( ADULT) (PEDIATRIC) SNOMED Code(s): 58748022 Plan: Patient is doing well after extubation area does not having any difficulties and we will be sending him home. We have discharge instructions to rest with his head elevated. No heavy lifting or bending. INSTRUCTIONS WERE GIVEN. HE' LL BE ON AUGMENTIN AND PREDNISONE AND NORCO. I'VE GIVEN HIM MY CELL PHONE IS TO CALL ME IF ANY PROBLEMS SHOULD ARISE Time with Patient: Greater than 30
== END 2017-08-15 18:13 | disposition home or self-care (01) | DRG 981 ==
LOC: OR 11:57 → 6ICU 15:50
PROVIDERS: ADMIT Otolaryngology; ATTEND Otolaryngology
PROC: 09BU8ZZ Excision of Right Ethmoid Sinus, Via Natural or Artificial Opening Endoscopic (ICD-10-PCS; principal; 2017-08-14 13:00)
PROC: 09DU4ZZ Extraction of Right Ethmoid Sinus, Percutaneous Endoscopic Approach (ICD-10-PCS; principal; 2017-08-14 13:00)
PROC: 0CB Mouth and Throat, Excision (ICD-10-PCS; principal; 2017-08-14 13:00)
PROC: 0NSX0ZZ Reposition Hyoid Bone, Open Approach (ICD-10-PCS; principal; 2017-08-14 13:00)
PROC: 09DV4ZZ Extraction of Left Ethmoid Sinus, Percutaneous Endoscopic Approach (ICD-10-PCS; principal; 2017-08-14 13:00)
PROC: 09BV8ZZ Excision of Left Ethmoid Sinus, Via Natural or Artificial Opening Endoscopic (ICD-10-PCS; principal; 2017-08-14 13:00)
PROC: 09BR8ZZ Excision of Left Maxillary Sinus, Via Natural or Artificial Opening Endoscopic (ICD-10-PCS; principal; 2017-08-14 13:00)
PROC: 09BQ8ZZ Excision of Right Maxillary Sinus, Via Natural or Artificial Opening Endoscopic (ICD-10-PCS; principal; 2017-08-14 13:00)
PROC: 0CB Mouth and Throat, Excision (ICD-10-PCS; principal; 2017-08-14 13:00)
PROC: 09BL8ZZ Excision of Nasal Turbinate, Via Natural or Artificial Opening Endoscopic (ICD-10-PCS; principal; 2017-08-14 13:00)
PROC: 0NQ Head and Facial Bones, Repair (ICD-10-PCS; principal; 2017-08-14 13:00)
DX: J96.01 Acute respiratory failure with hypoxia (principal); J81.0 Acute pulmonary edema; J32.9 Chronic sinusitis, unspecified; E66.9 Obesity, unspecified; G47.33 Obstructive sleep apnea (adult) (pediatric); J33.8 Other polyp of sinus; J34.2 Deviated nasal septum; J34.3 Hypertrophy of nasal turbinates; M26.19 Other specified anomalies of jaw-cranial base relationship; Z87.891 Personal history of nicotine dependence
CPT/HCPCS: 36600; 71045; 80048; 82805; 83036; 83735; 84100; 85025; 87070; 87205; 88300; 88302; 88305; 94002; 94003; 94640

== ENCOUNTER → 2019-11-25 | Outpatient (CLI) | payer BC ==
--- NOTE | 2019-11-25 10:01 | MR ---
EXAMINATION TYPE: MR knee LT wo con DATE OF EXAM: 11/25/2019 COMPARISON: NONE HISTORY: Lt knee pain/sprain injury. TECHNIQUE: Multiplanar, multisequence images of the knee is performed without IV contrast. FINDINGS: MEDIAL MENISCUS: Anterior horn is intact without tear. Posterior horn shows oblique increased signal extending to inferior articular surface sagittal image 25. LATERAL MENISCUS: Anterior and posterior horns are intact without tear. CRUCIATE LIGAMENTS: The anterior and posterior cruciate ligaments are intact and unremarkable. COLLATERAL LIGAMENTS: The medial collateral ligament and lateral collateral ligament complex are inta ct and unremarkable. EXTENSOR MECHANISM: Visualized quadriceps and patellar tendons are intact. EFFUSION: Small suprapatellar joint effusion. POPLITEAL CYST: Small popliteal/dhaliwal cyst axial image 16. TRICOMPARTMENT SPACES: Mild to borderline moderate tricompartment joint space loss. No significant sp urring. CARTILAGE: Tricompartment articular cartilage fairly well-preserved. BONE MARROW SIGNAL: No focal abnormal marrow signal is appreciated. OTHER: Increased fluid signal superficial infrapatellar fat. IMPRESSION: 1. Oblique full-thickness tear posterior horn medial meniscus. 2. Mild tricompartment degenerative changes. 3. Small suprapatellar joint effusion. 4. Small popliteal cyst.
== END | disposition home or self-care (01) ==
LOC: RADMRIMAIN 09:15
PROVIDERS: ATTEND Orthopaedic Surgery
DX: M17.12 Unilateral primary osteoarthritis, left knee (principal); S83.232A Complex tear of medial meniscus, current injury, left knee, initial encounter

== ENCOUNTER → 2020-02-16 | Outpatient (CLI) | payer BC ==
[2020-02-17 12:52] LABS: Honeybee Venom IgE Class CLASS 0; Paper Wasp IgE 1.01 kU/L (<0.10); Paper Wasp IgE Class CLASS 2; Sheep Sorrel IgE 0.19 kU/L (<0.10); Sheep Sorrel IgE Class CLASS 0/1; White-Faced Hornet IgE 0.63 kU/L (<0.10); White-Faced Hornet IgE Class CLASS 1; Yellow Hornet IgE Class CLASS 1
== END | disposition home or self-care (01) ==
LOC: LABWHC1 12:08
PROVIDERS: ATTEND Nurse Practitioner Family
DX: L50.0 Allergic urticaria (principal)
CPT/HCPCS: 36415; 86003

== ENCOUNTER → 2020-06-01 | Outpatient (CLI) | payer BC | END | disposition home or self-care (01) | LOC: LABWHC1 10:49 | PROVIDERS: ATTEND Family Medicine | DX: Z03.818 Encounter for observation for suspected exposure to other biological agents ruled out (principal) | CPT/HCPCS: U0003; C9803 ==

== ENCOUNTER 2023-02-19 11:01 | Emergency (ER) | payer BC ==
[2023-02-19 11:16] VITALS: BP 139/86; PULSE 72; RESP 18; TEMP 98
[2023-02-19] MEDS ORDERED: methylPREDNISolone SOD SUCCI 125 MG/2 ML VIAL IM ONE (12:09)
[2023-02-19] MEDS ORDERED: FAMOTIDINE 20 MG TAB PO STA (12:09)
--- NOTE | 2023-02-19 12:12 | ED ---
General Adult HPI - General Chief complaint: Skin/Abscess/Foreign Body Stated complaint: Bee sting Time Seen by Provider: 02/19/23 12:02 Source: patient Mode of arrival: ambulatory Limitations: no limitations - History of Present Illness Initial comments: Patient is 62 -year-old male who presents to the emergency department for bee sting. Patient was stung around 10:30 AM this morning the back of his right calf. 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 He initially had states he initially had rash and hives over his extremities which have resolved. Patient feels well he is requesting to leave. Denies chest pain and shortness of breath. - Related Data Previous Rx's Medication Instructions Recorded predniSONE 50 mg PO DAILY #5 tab 02/19/23 Allergies Allergy/AdvReac Type Severity Reaction Status Date / Time No Known Allergies Allergy Verified 02/19/23 11:16 Review of Systems ROS Statement: Those systems with pertinent positive or pertinent negative responses have been documented in the HPI. ROS Other: All systems not noted in ROS Statement are negative. Past Medical History Past Medical History: Sleep Apnea/CPAP/BIPAP Additional Past Medical History / Comment(s): SINUS PROBLEMS. 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 NASAL POLYPS REMOVED Past Anesthesia/Blood Transfusion Reactions: No Reported Reaction Past Psychological History: No Psychological Hx Reported Smoking Status: Never smoker Past Alcohol Use History: Occasional Past Drug Use History: None Reported - Past Family History Mother Family Medical History: Cancer Additional Family Medical History / Comment(s): LUNG General Exam Limitations: no limitations General appearance: alert Neck exam: Present: normal inspection. Absent: tenderness, meningismus, lymphadenopathy Respiratory exam: Present: normal lung sounds bilaterally. Absent: respiratory distress, wheezes, rales, rhonchi, stridor Neurological exam: Present: alert Psychiatric exam: Present: normal affect, normal mood Skin exam: Present: warm, dry, intact, normal color, other (Sting to right calf with surrounding urticaria. Otherwise no rash. ). Absent: rash Course Vital Signs 02/19/23 11:13 Temperature 98 F Pulse Rate 72 Respiratory 18 Rate Blood Pressure 139/86 O2 Sat by Pulse 96 Oximetry Medical Decision Making - Medical Decision Making Was pt. sent in by a medical professional or institution (LAVONNE Mireles, INSURANCE AGENCY OWNER, urgent care, hospital, or fci...) When possible be specific @ -No Did you speak to anyone other than the patient for history (EMS, parent, family, police, friend...)? What history was obtained from this source @ -No Did you review nursing and triage notes (agree or disagree)? Why? @ -I reviewed and agree with nursing and triage notes Were old charts reviewed (outside hosp., previous admission, EMS record, old EKG, old radiological studies, urgent care reports/EKG's, fci records)? Report findings @ -No old charts were reviewed Differential Diagnosis (chest pain, altered mental status, abdominal pain women, abdominal pain men, vaginal bleeding, weakness, fever, dyspnea, syncope, headache, dizziness, GI bleed, back pain, seizure, CVA, palpatations, mental health)? @ -ALLERGIC reaction, anaphylaxis, urticaria. This list is not meant to be all inclusive EKG interpreted by me (3pts min.). @ -As above X-rays interpreted by me (1pt min.). @ -None done CT interpreted by me (1pt min.). @ -None done U/S interpreted by me (1pt. min.). @ -None done What testing was considered but not performed or refused? (CT, X-rays, U/S, labs)? Why? @ -None What meds were considered but not given or refused? Why? @ -None Did you discuss the management of the patient with other professionals (professionals i.e. LAVONNE Mireles, INSURANCE AGENCY OWNER, lab, RT, psych nurse, social media editor, apprenticeship consultant, teacher, tax compliance officer, cyanide case hardener)? Give summary @ -No Was smoking cessation discussed for >3mins.? @ -No Was critical care preformed (if so, how long)? @ -No Were there social determinants of health that impacted care today? How? (Homelessness, low income, unemployed, alcoholism, drug addiction, transportation, low edu. Level, literacy, decrease access to med. care, senior living, rehab)? @ -No Was there de-escalation of care discussed even if they declined (Discuss DNR or withdrawal of care, Hospice)? DNR status @ -[No] What co-morbidities impacted this encounter? (DM, HTN, Smoking, COPD, CAD, Cancer, CVA, ARF, Chemo, Hep., AIDS, mental health diagnosis, sleep apnea, morbid obesity)? @ -[None] Was patient admitted / discharged? Hospital course, mention meds given and route, prescriptions, significant lab abnormalities, going to OR and other pertinent info. @ - This well-appearing 62 year-old presenting with after bee sting. Patient is well-appearing. He already took EpiPen and Benadryl. He has bee sting to right calf with surrounding urticaria otherwise no rash on body. No airway involvement. I recommended observation which patient patient declined. He was given dose of Solu-Medrol and Pepcid before discharge. He will be discharged with prednisone prescription. We discussed strict return parameters New problem with uncertain prognosis? @ -[No] Drug Therapy requiring intensive monitoring for toxicity (Heparin, Nitro, Insulin, Cardizem)? @ -[No] Were any procedures done? @ -[No] Diagnosis/symptom? @ -bee sting Acute, or Chronic, or Acute on Chronic? @ -acute Uncomplicated (without systemic symptoms) or Complicated (systemic symptoms)? @ -uncomplicated Side effects of treatment? @ -[No] Exacerbation, Progression, or Severe Exacerbation? @ -[No] Poses a threat to life or bodily function? How? (Chest pain, [place], [place], pneumonia, PE, COPD, DKA, ARF, appy, cholecystitis, CVA, Diverticulitis, Homicidal, Suicidal, threat to staff... and all critical care pts) @ -[No] Dr. Magallon is my attending Disposition Clinical Impression: Bee sting Disposition: HOME SELF-CARE Condition: Good Instructions (If sedation given, give patient instructions): Anaphylaxis (ED) Additional Instructions: Take medication as directed. Start the steroid tomorrow and continue Benadryl today for rash and itching. Follow-up with primary care provider in one to 2 days. Return to the emergency department if you experience new, concerning, or worsening symptoms. Prescriptions: predniSONE 50 mg PO DAILY #5 tab Is patient prescribed a controlled substance at d/c from ED?: No Referrals: Cameron Sung DO [Primary Care Provider] - 1-2 days
== END 2023-02-19 12:29 | disposition home or self-care (01) ==
LOC: EC 11:01
DX: T63.441A Toxic effect of venom of bees, accidental (unintentional), initial encounter (principal)
CPT/HCPCS: 99283; 96372; J2930